=== PATIENT | female | born 1960 | race American Indian/Alaskan Native ===

== ENCOUNTER 2021-04-13 06:02 | Observation (INO) | payer BC ==
[2021-04-13 06:40] LABS: Bilirubin,Urine NEG (Negative); Blood,Urine NEG (Negative); Color,Urine Yellow (Yellow); Urobilinogen,Urine < 2.0 mg/dL (<2.0); WBC,Urine < 1.0 /HPF (0.0-6.0)
[2021-04-13 07:16] LABS: Basophils # (Auto) 0.1 K/mm3 (0.0-0.1); Basophils % (Auto) 0.6 % (0.0-1.8); Eosinophils % (Auto) 0.3 % (0.0-4.3); Hematocrit 36.4 % (30.3-42.9); Hemoglobin 12.4 gm/dl (10.1-14.3); Lymphocytes # (Auto) 0.8 K/mm3 (1.2-5.4); Lymphocytes % (Auto) 7.6 % (13.4-35.0); Mean Corpuscular HGB Conc 34 % (30-34); Mean Corpuscular Volume 89 fl (79-97); Monocytes # (Auto) 0.3 K/mm3 (0.0-0.8); Monocytes % (Auto) 3.1 % (0.0-7.3); Platelet Count 352 K/mm3 (140-440); Red Blood Count 4.09 M/mm3 (3.65-5.03); Red Cell Distribution Width 14.5 % (13.2-15.2)
[2021-04-13 07:26] LABS: INR 0.94 (0.87-1.13); Partial Thromboplastin Time 25.9 Sec. (24.2-36.6)
[2021-04-13] MEDS ORDERED: MORPHINE 4 MG/1 ML INJ IV ONE ×3 (07:31→15:33)
[2021-04-13] MEDS ORDERED: PANTOPRAZOLE 40 MG INJ IV ONE (07:31)
[2021-04-13] MEDS ORDERED: ONDANSETRON 4 MG/2 ML INJ IV ONE ×2 (07:31→11:04)
--- NOTE | 2021-04-13 07:35 | Emergency Department Report ---
HPI - General Chief Complaint: Abdominal Pain Time Seen by Provider: 04/13/21 07:27 - HPI HPI: This is a 61-year-old -[place] female presents to the emergency department from home with complaint of middle to upper abdominal pain, nausea without vomiting, and 3 episodes of dark black stool, since about 9 PM last night. She has not taken anything for symptoms prior to presentation. Currently her abdominal pain is 8 out of 10 in intensity. No known aggravating or alleviating factors. She has a past medical history of hypertension and high cholesterol. She is a tobacco smoker and is currently taking bupropion to assist with smoking cessation. No recent travel or sick contacts at home. She has a primary care physician, Dr. Gordillo, for outpatient follow-up. ED Past Medical Hx - Past Medical History Previous Medical History?: Yes Hx Hypertension: Yes Additional medical history: high cholesterol - Surgical History Additional Surgical History: - Social History Smoking Status: Current Every Day Smoker Substance Use Type: None - Medications Home Medications: Home Medications Medication Instructions Recorded Confirmed Last Taken Type Atorvastatin 40 mg PO DAILY 04/13/21 04/13/21 Unknown History Bupropion HCl 150 mg PO BID 04/13/21 04/13/21 Unknown History Flexeril 5 MG TAB 5 mg PO BID PRN 04/13/21 04/13/21 Unknown History Losartan 100 mg PO DAILY 04/13/21 04/13/21 Unknown History Nifedipine 60 mg PO DAILY 04/13/21 04/13/21 Unknown History Trazodone HCl 75 mg PO HS 04/13/21 04/13/21 Unknown History ED Review of Systems ROS: Stated complaint: STOMACH PAINS/DARK BOWEL MOVEMENT Other details as noted in HPI Comment: All other systems reviewed and negative Constitutional: denies: chills, fever Eyes: denies: eye pain, vision change ENT: denies: ear pain, throat pain Respiratory: denies: cough, shortness of breath Cardiovascular: denies: chest pain, palpitations Gastrointestinal: abdominal pain, nausea, melena. denies: vomiting Genitourinary: denies: dysuria, discharge Musculoskeletal: denies: back pain, arthralgia Skin: denies: rash, lesions Neurological: denies: headache, weakness Physical Exam - Physical Exam Vital Signs: Vital Signs 04/13/21 06:13 Temperature 98.2 F Pulse Rate 101 H Respiratory 18 Rate Blood Pressure 156/88 O2 Sat by Pulse 99 Oximetry Physical Exam: GENERAL: The patient is well-developed well-nourished. HENT: Normocephalic. Atraumatic. Patient has moist mucous membranes. EYES: Extraocular motions are intact. NECK: Supple. Trachea is midline. CHEST/LUNGS: Clear to auscultation. There is no respiratory distress noted. HEART/CARDIOVASCULAR: Regular. There is no tachycardia. There is no murmur. ABDOMEN: Abdomen is soft. There is upper abdominal tenderness to palpation. No guarding. Patient has normal bowel sounds. There is no abdominal distention. SKIN: Skin is warm and dry. NEURO: The patient is awake, alert, and oriented. The patient is cooperative. The patient has no focal neurologic deficits. Normal speech. MUSCULOSKELETAL: There is no tenderness or deformity. There is no limitation range of motion. RECTAL: There was a small amount of dark brown stool obtained that was negative on guaiac testing. ED Course Vital Signs 04/13/21 06:13 Temperature 98.2 F Pulse Rate 101 H Respiratory 18 Rate Blood Pressure 156/88 O2 Sat by Pulse 99 Oximetry ED Medical Decision Making - Lab Data Result diagrams: 04/13/21 06:58 04/13/21 06:58 Lab Results 04/13/21 04/13/21 04/13/21 Range/Units 06:58 06:58 06:58 WBC 10.3 (4.5-11.0) K/mm3 RBC 4.09 (3.65-5.03) M/mm3 Hgb 12.4 (10.1-14.3) gm/dl Hct 36.4 (30.3-42.9) % MCV 89 (79-97) fl MCH 30 (28-32) pg MCHC 34 (30-34) % RDW 14.5 (13.2-15.2) % Plt Count 352 (140-440) K/mm3 Lymph % (Auto) 7.6 L (13.4-35.0) % [place] % (Auto) 3.1 (0.0-7.3) % Eos % (Auto) 0.3 (0.0-4.3) % Baso % (Auto) 0.6 (0.0-1.8) % Lymph # (Auto) 0.8 L (1.2-5.4) K/mm3 [place] # (Auto) 0.3 (0.0-0.8) K/mm3 Eos # (Auto) 0.0 (0.0-0.4) K/mm3 Baso # (Auto) 0.1 (0.0-0.1) K/mm3 Seg Neutrophils % 88.4 H (40.0-70.0) % Seg Neutrophils # 9.1 H (1.8-7.7) K/mm3 PT 13.1 (12.2-14.9) Sec. INR 0.94 (0.87-1.13) APTT 25.9 (24.2-36.6) Sec. Sodium 137 (137-145) mmol/L Potassium 3.8 (3.6-5.0) mmol/L Chloride 98.9 (98-107) mmol/L Carbon Dioxide 24 (22-30) mmol/L Anion Gap 18 mmol/L BUN 13 (7-17) mg/dL Creatinine 0.7 (0.6-1.2) mg/dL Estimated GFR > 60 ml/min BUN/Creatinine Ratio 19 % Glucose 121 H (65-100) mg/dL Calcium 9.9 (8.4-10.2) mg/dL Total Bilirubin 0.50 (0.1-1.2) mg/dL AST 49 H (5-40) units/L ALT 41 (7-56) units/L Alkaline Phosphatase 112 (35-129) units/L Total Protein 7.3 (6.3-8.2) g/dL Albumin 4.8 (3.9-5) g/dL Albumin/Globulin Ratio 1.9 % Lipase (13-60) units/L Urine Color (Yellow) Urine Turbidity (Clear) Urine pH (5.0-7.0) Ur Specific [place] (1.003-1.030) Urine Protein (Negative) mg/dL Urine Glucose (UA) (Negative) mg/dL Urine Ketones (Negative) mg/dL Urine Blood (Negative) Urine Nitrite (Negative) Urine Bilirubin (Negative) Urine Urobilinogen (<2.0) mg/dL Ur Leukocyte Esterase (Negative) Urine WBC (Auto) (0.0-6.0) /HPF Urine RBC (Auto) (0.0-6.0) /HPF U Epithel Cells (Auto) (0-13.0) /HPF 04/13/21 04/13/21 Range/Units 06:58 Unknown WBC (4.5-11.0) K/mm3 RBC (3.65-5.03) M/mm3 Hgb (10.1-14.3) gm/dl Hct (30.3-42.9) % MCV (79-97) fl MCH (28-32) pg MCHC (30-34) % RDW (13.2-15.2) % Plt Count (140-440) K/mm3 Lymph % (Auto) (13.4-35.0) % [place] % (Auto) (0.0-7.3) % Eos % (Auto) (0.0-4.3) % Baso % (Auto) (0.0-1.8) % Lymph # (Auto) (1.2-5.4) K/mm3 [place] # (Auto) (0.0-0.8) K/mm3 Eos # (Auto) (0.0-0.4) K/mm3 Baso # (Auto) (0.0-0.1) K/mm3 Seg Neutrophils % (40.0-70.0) % Seg Neutrophils # (1.8-7.7) K/mm3 PT (12.2-14.9) Sec. INR (0.87-1.13) APTT (24.2-36.6) Sec. Sodium (137-145) mmol/L Potassium (3.6-5.0) mmol/L Chloride (98-107) mmol/L Carbon Dioxide (22-30) mmol/L Anion Gap mmol/L BUN (7-17) mg/dL Creatinine (0.6-1.2) mg/dL Estimated GFR ml/min BUN/Creatinine Ratio % Glucose (65-100) mg/dL Calcium (8.4-10.2) mg/dL Total Bilirubin (0.1-1.2) mg/dL AST (5-40) units/L ALT (7-56) units/L Alkaline Phosphatase (35-129) units/L Total Protein (6.3-8.2) g/dL Albumin (3.9-5) g/dL Albumin/Globulin Ratio % Lipase 28 (13-60) units/L Urine Color Yellow (Yellow) Urine Turbidity Clear (Clear) Urine pH 7.0 (5.0-7.0) Ur Specific [place] 1.010 (1.003-1.030) Urine Protein 30 mg/dl (Negative) mg/dL Urine Glucose (UA) 50 (Negative) mg/dL Urine Ketones Tr (Negative) mg/dL Urine Blood Neg (Negative) Urine Nitrite Neg (Negative) Urine Bilirubin Neg (Negative) Urine Urobilinogen < 2.0 (<2.0) mg/dL Ur Leukocyte Esterase Neg (Negative) Urine WBC (Auto) < 1.0 (0.0-6.0) /HPF Urine RBC (Auto) 1.0 (0.0-6.0) /HPF U Epithel Cells (Auto) < 1.0 (0-13.0) /HPF - Radiology Data Radiology results: report reviewed Chest and abdominal series HISTORY: Abdominal pain. Chest one view: Heart size is normal. The lungs are clear. Two-view abdomen: No free air. Mildly distended small bowel loops with air-fluid levels. Developing obstruction versus gastroenteritis-type process. CT ABDOMEN AND PELVIS WITH CONTRAST INDICATION / CLINICAL INFORMATION: Right upper quadrant pain. TECHNIQUE: Axial CT images were obtained through the abdomen and pelvis after Omnipaque 300, 100 cc [address] All [address] scans at this location are performed using CT dose reduction for ALARA by means of automated exposure control. COMPARISON: None available. FINDINGS: LOWER CHEST: No significant abnormality. LIVER: No significant abnormality. GALLBLADDER: Calcified gallstones. BILE DUCTS: No significant abnormality. PANCREAS: No significant abnormality. SPLEEN: No significant abnormality. ADRENALS: No significant abnormality. RIGHT KIDNEY / URETER: No significant abnormality. LEFT KIDNEY / URETER: No significant abnormality. STOMACH / SMALL BOWEL: No signific ant abnormality. COLON: Moderate thickening at the a sending colon with adjacent inflammation. No free perforation or abscess. APPENDIX: No significant abnormality. PERITONEUM: No free fluid. No free air. No fluid collection. LYMPH NODES: No significant adenopathy. VASCULAR STRUCTURES: Mild atherosclerotic vascular calcification. URINARY BLADDER: Mild distention. REPRODUCTIVE ORGANS: No significant abnormality. ADDITIONAL FINDINGS: None. SKELETAL SYSTEM: No significant abnormality. IMPRESSION: 1. Suspect localized colitis at the ascending colon. Follow-up is recommended to ensure clearing and exclude an underlying lesion. 2. Calcified gallstones. - Medical Decision Making This patient presents to the emergency department with a complaint of middle to upper abdominal pain, melanotic stool and some nausea without vomiting. There is reproducible abdominal tenderness to palpation. The abdomen is soft and nondistended. Patient's labs have been mostly unremarkable including CBC, metabolic panel and urinalysis. Abdominal x-ray showed some concern for possible early obstruction with some mildly distended bowel. For this reason a CT scan of the abdomen and pelvis with IV contrast was done that shows some colitis in the ascending colon. It al so shows calcified gallstones without evidence of cholecystitis. The patient received 2 different doses of IV analgesia, 2 doses of antiemetics, IV fluid resuscitation, and she continues to complain of at least moderate abdominal pain. She also continues to have some mild tachycardia. For these r easons the patient will be admitted to the hospital for further evaluation and treatment was accepted for patient by the hospitalist, Dr. Mcguire. Critical Care Time: No Critical care attestation.: If time is entered above; I have spent that time in minutes in the direct care of this critically ill patient, excluding procedure time. ED Disposition Clinical Impression: Colitis, Intractable abdominal pain, Complaint of melena Cholelithiasis Qualifiers: Cholelithiasis location: gallbladder Cholecystitis presence: without cholecys titis Biliary obstruction: without biliary obstruction Qualified Code(s): K80.20 - Calculus of gallbladder without cholecystitis without obstruction Hypertension Qualifiers: Hypertension type: primary hypertension Qualified Code(s): I10 - Essential (primary) hypertension Disposition: OP ADMIT IP TO THIS HOSP Is pt being admited?: Yes Condition: Fair Instructions: Abdominal Pain (ED), Hypertension (ED) Time of Disposition: 13:48
[2021-04-13 08:03] LABS: Alanine Aminotransferase 41 units/L (7-56); Albumin 4.8 g/dL (3.9-5); Blood Urea Nitrogen 13 mg/dL (7-17); Calcium 9.9 mg/dL (8.4-10.2); Hemolysis Index 2
[2021-04-13 08:08] LABS: BUN/Creatinine Ratio 19
[2021-04-13] MEDS ORDERED: WATER FOR INJ Sterile (PF) 10 ML ONE (08:09)
--- NOTE | 2021-04-13 08:47 | XRay Report ---
Chest and abdominal series HISTORY: Abdominal pain. Chest one view: Heart size is normal. The lungs are clear. Two-view abdomen: No free air. Mildly distended small bowel loops with air-fluid levels. Developing o bstruction versus gastroenteritis-type process. Signer Name: Kamran Anderson MD Signed: 04/13/2021 8:43 AM Workstation Name: [id number]
--- NOTE | 2021-04-13 10:58 | Cat Scan Report ---
CT ABDOMEN AND PELVIS WITH CONTRAST INDICATION / CLINICAL INFORMATION: Right upper quadrant pain. TECHNIQUE: Axial CT images were obtained through the abdomen and pelvis after Omnipaque 300, 100 cc I V contrast. All CT scans at this location are performed using CT dose reduction for ALARA by means o f automated exposure control. COMPARISON: None available. FINDINGS: LOWER CHEST: No significant abnormality. LIVER: No significant abnormality. GALLBLADDER: Calcified gallstones. BILE DUCTS: No significant abnormality. PANCREAS: No significant abnormality. SPLEEN: No significant abnormality. ADRENALS: No significant abnormality. RIGHT KIDNEY / URETER: No significant abnormality. LEFT KIDNEY / URETER: No significant abnormality. STOMACH / SMALL BOWEL: No significant abnormality. COLON: Moderate thickening at the a sending colon with adjacent inflammation. No free perforation or abscess. APPENDIX: No significant abnormality. PERITONEUM: No free fluid. No free air. No fluid collection. LYMPH NODES: No significant adenopathy. VASCULAR STRUCTURES: Mild atherosclerotic vascular calcification. URINARY BLADDER: Mild distention. REPRODUCTIVE ORGANS: No significant abnormality. ADDITIONAL FINDINGS: None. SKELETAL SYSTEM: No significant abnormality. IMPRESSION: 1. Suspect localized colitis at the ascending colon. Follow-up is recommended to ensure clearing and exclude an underlying lesion. 2. Calcified gallstones. Signer Name: Kamran Anderson MD Signed: 04/13/2021 10:54 AM Workstation Name: [id number]
[2021-04-13] MEDS ORDERED: PIPERACIL/TAZOBACTA 4.5/NS 100 4.5 GM/100 ML VIAL IV ONE (11:41)
--- NOTE | 2021-04-13 15:57 | History and Physical Report ---
History of Present Illness Date of examination: 04/13/21 Date of admission: 04/13/21 15:16 Chief complaint: Abdominal pain since a.m. History of present illness: 61-year-old female with history of hypertension hyperlipidemia and generalized anxiety disorder comes in for diffuse abdominal pain associated with nausea but no vomiting. Also 3 episodes of black stools since last night at 9 PM. Abdominal pain is about 8 on a scale of 1/10 1-10 scale. Intermittent in nature. Currently a smoker. No recent travel no fever or chills. No exposure to coronavirus. Her main problem is diffuse abdominal pain. - Past Medical History Previous Medical History?: Yes --Hypertension: Yes --Additional medical history: high cholesterol - Surgical History Additional Surgical History: - Social History Smoking Status: Current Every Day Smoker Substance Use Type: None - Medications Home Medications: Home Medications Medication Instructions Recorded Confirmed Last Taken Type Atorvastatin 40 mg PO DAILY 04/13/21 04/13/21 Unknown History Bupropion HCl 150 mg PO BID 04/13/21 04/13/21 Unknown History Flexeril 5 MG TAB 5 mg PO BID PRN 04/13/21 04/13/21 Unknown History Losartan 100 mg PO DAILY 04/13/21 04/13/21 Unknown History Nifedipine 60 mg PO DAILY 04/13/21 04/13/21 Unknown History Trazodone HCl 75 mg PO HS 04/13/21 04/13/21 Unknown History Review of Systems ROS: Stated complaint: STOMACH PAINS/DARK BOWEL MOVEMENT Other details as noted in HPI Comment: All other systems reviewed and negative Constitutional: denies: chills, fever Eyes: denies: eye pain, vision change ENT: denies: ear pain, throat pain Respiratory: denies: cough, shortness of breath Cardiovascular: denies: chest pain, palpitations Gastrointestinal: abdominal pain, nausea, melena. denies: vomiting Genitourinary: denies: dysuria, discharge Musculoskeletal: denies: back pain, arthralgia Skin: denies: rash, lesions Neurological: denies: headache, weakness Medications and Allergies Allergies Allergy/AdvReac Type Severity Reaction Status Date / Time No Known Allergies Allergy Verified 04/13/21 08:11 Home Medications Medication Instructions Recorded Confirmed Last Taken Type Atorvastatin 40 mg PO DAILY 04/13/21 04/13/21 Unknown History Bupropion HCl 150 mg PO BID 04/13/21 04/13/21 Unknown History Flexeril 5 MG TAB 5 mg PO BID PRN 04/13/21 04/13/21 Unknown History Losartan 100 mg PO DAILY 04/13/21 04/13/21 Unknown History Nifedipine 60 mg PO DAILY 04/13/21 04/13/21 Unknown History Trazodone HCl 75 mg PO HS 04/13/21 04/13/21 Unknown History Exam - Constitutional Vitals: Temp Pulse Resp BP Pulse Ox 99.0 F 99 H 21 155/91 99 04/13/21 15:30 04/13/21 15:30 04/13/21 10:15 04/13/21 15:30 04/13/21 15:30 General appearance: Present: no acute distress, well-nourished - EENT Eyes: Present: PERRL ENT: hearing intact, clear oral mucosa - Neck Neck: Present: supple, normal ROM - Respiratory Respiratory effort: normal Respiratory: bilateral: CTA - Cardiovascular Heart rate: 78 Rhythm: regular Heart Sounds: Present: S1 & S2. Absent: rub, click - Extremities Extremities: pulses symmetrical, No edema Peripheral Pulses: within normal limits - Abdominal General gastrointestinal: Present: soft, tender, non-distended, normal bowel sounds Localized gastrointestinal: tender: diffuse Female genitourinary: Present: normal - Integumentary Integumentary: Present: clear, warm, dry - Musculoskeletal Musculoskeletal: gait normal, strength equal bilaterally - Psychiatric Psychiatric: appropriate mood/affect, intact judgment & insight - Neurologic Neurologic: CNII-XII intact, moves all extremities - Allied Health Allied health notes reviewed: nursing, case management Results - Labs CBC & Chem 7: 04/14/21 04:14 04/14/21 04:14 Labs: Laboratory Last Values WBC 10.3 K/mm3 (4.5-11.0) 04/13/21 06:58 RBC 4.09 M/mm3 (3.65-5.03) 04/13/21 06:58 Hgb 12.4 gm/dl (10.1-14.3) 04/13/21 06:58 Hct 36.4 % (30.3-42.9) 04/13/21 06:58 MCV 89 fl (79-97) 04/13/21 06:58 MCH 30 pg (28-32) 04/13/21 06:58 MCHC 34 % (30-34) 04/13/21 06:58 RDW 14.5 % (13.2-15.2) 04/13/21 06:58 Plt Count 352 K/mm3 (140-440) 04/13/21 06:58 Lymph % (Auto) 7.6 % (13.4-35.0) L 04/13/21 06:58 Daniels % (Auto) 3.1 % (0.0-7.3) 04/13/21 06:58 Eos % (Auto) 0.3 % (0.0-4.3) 04/13/21 06:58 Baso % (Auto) 0.6 % (0.0-1.8) 04/13/21 06:58 Lymph # (Auto) 0.8 K/mm3 (1.2-5.4) L 04/13/21 06:58 Daniels # (Auto) 0.3 K/mm3 (0.0-0.8) 04/13/21 06:58 Eos # (Auto) 0.0 K/mm3 (0.0-0.4) 04/13/21 06:58 Baso # (Auto) 0.1 K/mm3 (0.0-0.1) 04/13/21 06:58 Seg Neutrophils % 88.4 % (40.0-70.0) H 04/13/21 06:58 Seg Neutrophils # 9.1 K/mm3 (1.8-7.7) H 04/13/21 06:58 PT 13.1 Sec. (12.2-14.9) 04/13/21 06:58 INR 0.94 (0.87-1.13) 04/13/21 06:58 APTT 25.9 Sec. (24.2-36.6) 04/13/21 06:58 Sodium 137 mmol/L (137-145) 04/13/21 06:58 Potassium 3.8 mmol/L (3.6-5.0) 04/13/21 06:58 Chloride 98.9 mmol/L (98-107) 04/13/21 06:58 Carbon Dioxide 24 mmol/L (22-30) 04/13/21 06:58 Anion Gap 18 mmol/L 04/13/21 06:58 BUN 13 mg/dL (7-17) 04/13/21 06:58 Creatinine 0.7 mg/dL (0.6-1.2) 04/13/21 06:58 Estimated GFR > 60 ml/min 04/13/21 06:58 BUN/Creatinine Ratio 19 % 04/13/21 06:58 Glucose 121 mg/dL (65-100) H 04/13/21 06:58 Calcium 9.9 mg/dL (8.4-10.2) 04/13/21 06:58 Total Bilirubin 0.50 mg/dL (0.1-1.2) 04/13/21 06:58 AST 49 units/L (5-40) H 04/13/21 06:58 ALT 41 units/L (7-56) 04/13/21 06:58 Alkaline Phosphatase 112 units/L (35-129) 04/13/21 06:58 Total Protein 7.3 g/dL (6.3-8.2) 04/13/21 06:58 Albumin 4.8 g/dL (3.9-5) 04/13/21 06:58 Albumin/Globulin Ratio 1.9 % 04/13/21 06:58 Lipase 28 units/L (13-60) 04/13/21 06:58 Urine Color Yellow (Yellow) 04/13/21 Unknown Urine Turbidity Clear (Clear) 04/13/21 Unknown Urine pH 7.0 (5.0-7.0) 04/13/21 Unknown Ur Specific [place] 1.010 (1.003-1.030) 04/13/21 Unknown Urine Protein 30 mg/dl mg/dL (Negative) 04/13/21 Unknown Urine Glucose (UA) 50 mg/dL (Negative) 04/13/21 Unknown Urine Ketones Tr mg/dL (Negative) 04/13/21 Unknown Urine Blood Neg (Negative) 04/13/21 Unknown Urine Nitrite Neg (Negative) 04/13/21 Unknown Urine Bilirubin Neg (Negative) 04/13/21 Unknown Urine Urobilinogen < 2.0 mg/dL (<2.0) 04/13/21 Unknown Ur Leukocyte Esterase Neg (Negative) 04/13/21 Unknown Urine WBC (Auto) < 1.0 /HPF (0.0-6.0) 04/13/21 Unknown Urine RBC (Auto) 1.0 /HPF (0.0-6.0) 04/13/21 Unknown U Epithel Cells (Auto) < 1.0 /HPF (0-13.0) 04/13/21 Unknown Short CBC 04/13/21 Range/Units 06:58 WBC 10.3 (4.5-11.0) K/mm3 Hgb 12.4 (10.1-14.3) gm/dl Hct 36.4 (30.3-42.9) % Plt Count 352 (140-440) K/mm3 BMP 04/13/21 06:58 Sodium 137 Potassium 3.8 Chloride 98.9 Carbon Dioxide 24 BUN 13 Creatinine 0.7 Glucose 121 H Calcium 9.9 Liver Function 04/13/21 Range/Units 06:58 Total Bilirubin 0.50 (0.1-1.2) mg/dL AST 49 H (5-40) units/L ALT 41 (7-56) units/L Alkaline Phosphatase 112 (35-129) units/L Albumin 4.8 (3.9-5) g/dL Urine 04/13/21 Range/Units Unknown Urine Color Yellow (Yellow) Urine pH 7.0 (5.0-7.0) Ur Specific [place] 1.010 (1.003-1.030) Urine Protein 30 mg/dl (Negative) mg/dL Urine Glucose (UA) 50 (Negative) mg/dL Short CBC 04/13/21 04/14/21 Range/Units 06:58 04:14 WBC 10.3 9.0 (4.5-11.0) K/mm3 Hgb 12.4 11.2 (10.1-14.3) gm/dl Hct 36.4 33.3 (30.3-42.9) % Plt Count 352 282 (140-440) K/mm3 BMP 04/13/21 04/14/21 06:58 04:14 Sodium 137 139 Potassium 3.8 3.4 L Chloride 98.9 103.4 Carbon Dioxide 24 25 BUN 13 7 Creatinine 0.7 0.6 Glucose 121 H 93 Calcium 9.9 9.1 Liver Function 04/13/21 04/14/21 Range/Units 06:58 04:14 Total Bilirubin 0.50 0.90 (0.1-1.2) mg/dL AST 49 H 23 (5-40) units/L ALT 41 24 (7-56) units/L Alkaline Phosphatase 112 97 (35-129) units/L Albumin 4.8 4.0 (3.9-5) g/dL - Imaging and Cardiology CT scan - abdomen: report reviewed Imaging and Cardiology: CT ABDOMEN AND PELVIS WITH CONTRAST INDICATION / CLINICAL INFORMATION: Right upper quadrant pain FINDINGS: COLON: Moderate thickening at the Ascending colon with adjacent inflammation. No free perforation or abscess LOWER CHEST: No significant abnormality. LIVER: No significant abnormality. GALLBLADDER: Calcified gallstones. BILE DUCTS: No significant abnormality. PANCREAS: No significant abnormality. SPLEEN: No significant abnormality. ADRENALS: No significant abnormality. RIGHT KIDNEY / URETER: No significant abnormality. LEFT KIDNEY / URETER: No significant abnormality. STOMACH / SMALL BOWEL: No significant abnormality. . APPENDIX: No significant abnormality. PERITONEUM: No free fluid. No free air. No fluid collection. LYMPH NODES: No significant adenopathy. VASCULAR STRUCTURES: Mild atherosclerotic vascular calcification. URINARY BLADDER: Mild distention. REPRODUCTIVE ORGANS: No significant abnormality. ADDITIONAL FINDINGS: None. SKELETAL SYSTEM: No significant abnormality. IMPRESSION: 1. Suspect localized colitis at the ascending colon. Follow-up is recommended to ensure clearing and exclude an underlying lesion. 2. Calcified gallstones. Assessment and Plan Advance Directives: Yes - Patient Problems (1) Colitis Current Visit: Yes Status: Acute Plan to address problem: Patient initiated on IV Zosyn and IV Flagyl GI consult requested Clear liquids for now (2) Hypertension Current Visit: Yes Status: Chronic Qualifiers: Hypertension type: primary hypertension Qualified Code(s): I10 - Essential (primary) hypertension Plan to address problem: Continue antihypertensives (3) Hyperlipidemia Current Visit: Yes Status: Chronic Qualifiers: Hyperlipidemia type: mixed hyperlipidemia Qualified Code(s): E78.2 - Mixed hyperlipidemia Plan to address problem: Continue statins. (4) Depression Current Visit: Yes Status: Chronic Plan to address problem: Continue Wellbutrin (5) DVT prophylaxis Current Visit: Yes Status: Acute Plan to address problem: On heparin and GI prophylaxis
[2021-04-13] MEDS ORDERED: FLEXERIL 5 MG PO PRN (16:09)
[2021-04-13] MEDS ORDERED: NON-FORMULARY EACH (Nifedipine 60 MG) PO SCH (16:15)
[2021-04-13] MEDS ORDERED: NON-FORMULARY EACH (Losartan 100 MG) PO SCH (16:15)
[2021-04-13] MEDS ORDERED: ACETAMINOPHEN 325 MG TAB PO PRN (16:19)
[2021-04-13] MEDS ORDERED: MORPHINE 2 MG/1 ML INJ IV PRN (16:19)
[2021-04-13] MEDS ORDERED: METOCLOPRAMIDE 10 MG/2 ML INJ IV PRN (16:19)
[2021-04-13] MEDS: NIFEdipine XL 60 MG TAB PO SCH (16:44)
[2021-04-13] MEDS: LOSARTAN 50 MG TAB PO SCH (16:46)
[2021-04-13] MEDS: SODIUM CHLORIDE 0.9% 1000 ML 1,000 ML IV SCH (16:47)
[2021-04-13] MEDS ORDERED: CYCLOBENZAPRINE 10 MG TAB PO PRN (22:00)
[2021-04-13] MEDS ORDERED: TRAZODONE HCL 75 MG PO SCH (22:00)
[2021-04-13] MEDS: FAMOTIDINE 20 MG/2 ML INJ IV SCH (22:44)
[2021-04-13] MEDS: traZODone 50 MG TAB PO SCH (22:44)
[2021-04-13] MEDS: buPROPion SR 150 MG TAB PO SCH (22:45)
[2021-04-13] MEDS: PIPERACIL/TAZOBACTA 4.5/NS 100 4.5 GM/100 ML VIAL IV SCH (22:45)
[2021-04-14] MEDS: PIPERACIL/TAZOBACTA 4.5/NS 100 4.5 GM/100 ML VIAL IV SCH ×3 (03:41→20:13)
[2021-04-14 05:15] LABS: Basophils % (Auto) 0.3 % (0.0-1.8); Eosinophils # (Auto) 0.1 K/mm3 (0.0-0.4); Eosinophils % (Auto) 1.2 % (0.0-4.3); Hematocrit 33.3 % (30.3-42.9); Hemoglobin 11.2 gm/dl (10.1-14.3); Lymphocytes # (Auto) 1.1 K/mm3 (1.2-5.4); Lymphocytes % (Auto) 12.3 % (13.4-35.0); Mean Corpuscular HGB Conc 34 % (30-34); Mean Corpuscular Volume 90 fl (79-97); Monocytes # (Auto) 0.5 K/mm3 (0.0-0.8); Monocytes % (Auto) 5.5 % (0.0-7.3); Platelet Count 282 K/mm3 (140-440); Red Blood Count 3.69 M/mm3 (3.65-5.03); Red Cell Distribution Width 14.3 % (13.2-15.2)
[2021-04-14 05:33] LABS: Alanine Aminotransferase 24 units/L (7-56); Blood Urea Nitrogen 7 mg/dL (7-17); Calcium 9.1 mg/dL (8.4-10.2); Hemolysis Index 2
[2021-04-14 05:44] LABS: BUN/Creatinine Ratio 12
[2021-04-14] MEDS ORDERED: POTASSIUM CHLORIDE ER 20 MEQ TAB PO NR (08:38)
--- NOTE | 2021-04-14 08:39 | Progress Note ---
Assessment and Plan Assessment and plan: --Hypokalemia; Current Visit: Yes Status: Acute Replenished with KCl --Localized colitis ascending colon Current Visit: Yes Status: Acute Continue IV Zosyn and IV Flagyl IV fluids , clear liquids as tolerated Follow GI evaluation and recommendations Pain management --Hypertension Current Visit: Yes Status: Chronic Moderate control, continue current antihypertensives closely monitor blood pressures, as needed medications --Hyperlipidemia Current Visit: Yes Status: Chronic Continue statins. Low-cholesterol diet --Depression Current Visit: Yes Status: Chronic Continue Wellbutrin, psych evaluation if needed --DVT prophylaxis Current Visit: Yes Status: Acute On heparin and GI prophylaxis follow GI evaluation recommendations We will closely monitor the patient and adjust the management as needed Possible discharge in 1 to 2 days if stable pending GI evaluation History Interval history: I have seen and examined the patient at the bedside Patient's chart and medications reviewed No new events reported by the nursing staff Patient is tolerating clear liquids Mild abdominal pain, No nausea vomiting no diarrhea Vital signs noted Hospitalist Physical - Constitutional Vitals: Temp Pulse Resp BP Pulse Ox 98.7 F 96 H 18 126/70 98 04/14/21 07:27 04/14/21 07:27 04/14/21 07:27 04/14/21 07:27 04/14/21 07:27 General appearance: Present: no acute distress, well-nourished - EENT Eyes: Present: PERRL, EOM intact - Neck Neck: Present: supple, normal ROM - Respiratory Respiratory effort: normal Respiratory: bilateral: diminished, negative: rales, rhonchi, wheezing - Cardiovascular Rhythm: regular Heart Sounds: Present: S1 & S2 - Extremities Extremities: no ischemia, No edema - Abdominal General gastrointestinal: soft, tender, non-distended - Integumentary Integumentary: Present: clear, warm - Psychiatric Psychiatric: appropriate mood/affect, cooperative - Neurologic Neurologic: CNII-XII intact, moves all extremities Results - Labs CBC & Chem 7: 04/14/21 04:14 04/14/21 04:14 Labs: Laboratory Last Values WBC 9.0 K/mm3 (4.5-11.0) 04/14/21 04:14 RBC 3.69 M/mm3 (3.65-5.03) 04/14/21 04:14 Hgb 11.2 gm/dl (10.1-14.3) 04/14/21 04:14 Hct 33.3 % (30.3-42.9) 04/14/21 04:14 MCV 90 fl (79-97) 04/14/21 04:14 MCH 30 pg (28-32) 04/14/21 04:14 MCHC 34 % (30-34) 04/14/21 04:14 RDW 14.3 % (13.2-15.2) 04/14/21 04:14 Plt Count 282 K/mm3 (140-440) 04/14/21 04:14 Lymph % (Auto) 12.3 % (13.4-35.0) L 04/14/21 04:14 [place]ger % (Auto) 5.5 % (0.0-7.3) 04/14/21 04:14 Eos % (Auto) 1.2 % (0.0-4.3) 04/14/21 04:14 Baso % (Auto) 0.3 % (0.0-1.8) 04/14/21 04:14 Lymph # (Auto) 1.1 K/mm3 (1.2-5.4) L 04/14/21 04:14 [place] # (Auto) 0.5 K/mm3 (0.0-0.8) 04/14/21 04:14 Eos # (Auto) 0.1 K/mm3 (0.0-0.4) 04/14/21 04:14 Baso # (Auto) 0.0 K/mm3 (0.0-0.1) 04/14/21 04:14 Seg Neutrophils % 80.7 % (40.0-70.0) H 04/14/21 04:14 Seg Neutrophils # 7.2 K/mm3 (1.8-7.7) 04/14/21 04:14 PT 13.1 Sec. (12.2-14.9) 04/13/21 06:58 INR 0.94 (0.87-1.13) 04/13/21 06:58 APTT 25.9 Sec. (24.2-36.6) 04/13/21 06:58 Sodium 139 mmol/L (137-145) 04/14/21 04:14 Potassium 3.4 mmol/L (3.6-5.0) L 04/14/21 04:14 Chloride 103.4 mmol/L (98-107) 04/14/21 04:14 Carbon Dioxide 25 mmol/L (22-30) 04/14/21 04:14 Anion Gap 14 mmol/L 04/14/21 04:14 BUN 7 mg/dL (7-17) 04/14/21 04:14 Creatinine 0.6 mg/dL (0.6-1.2) 04/14/21 04:14 Estimated GFR > 60 ml/min 04/14/21 04:14 BUN/Creatinine Ratio 12 % 04/14/21 04:14 Glucose 93 mg/dL (65-100) 04/14/21 04:14 Hemoglobin A1c 4.4 % (4-6) 04/14/21 04:14 Calcium 9.1 mg/dL (8.4-10.2) 04/14/21 04:14 Total Bilirubin 0.90 mg/dL (0.1-1.2) 04/14/21 04:14 AST 23 units/L (5-40) 04/14/21 04:14 ALT 24 units/L (7-56) 04/14/21 04:14 Alkaline Phosphatase 97 units/L (35-129) 04/14/21 04:14 Total Protein 6.4 g/dL (6.3-8.2) 04/14/21 04:14 Albumin 4.0 g/dL (3.9-5) 04/14/21 04:14 Albumin/Globulin Ratio 1.7 % 04/14/21 04:14 Lipase 28 units/L (13-60) 04/13/21 06:58 Urine Color Yellow (Yellow) 04/13/21 Unknown Urine Turbidity Clear (Clear) 04/13/21 Unknown Urine pH 7.0 (5.0-7.0) 04/13/21 Unknown Ur Specific Downey 1.010 (1.003-1.030) 04/13/21 Unknown Urine Protein 30 mg/dl mg/dL (Negative) 04/13/21 Unknown Urine Glucose (UA) 50 mg/dL (Negative) 04/13/21 Unknown Urine Ketones Tr mg/dL (Negative) 04/13/21 Unknown Urine Blood Neg (Negative) 04/13/21 Unknown Urine Nitrite Neg (Negative) 04/13/21 Unknown Urine Bilirubin Neg (Negative) 04/13/21 Unknown Urine Urobilinogen < 2.0 mg/dL (<2.0) 04/13/21 Unknown Ur Leukocyte Esterase Neg (Negative) 04/13/21 Unknown Urine WBC (Auto) < 1.0 /HPF (0.0-6.0) 04/13/21 Unknown Urine RBC (Auto) 1.0 /HPF (0.0-6.0) 04/13/21 Unknown U Epithel Cells (Auto) < 1.0 /HPF (0-13.0) 04/13/21 Unknown Dawkins/IV: Voiding Method Toilet Active Medications - Current Medications Current Medications: Generic Name Dose Route Start Last Admin Trade Name Freq PRN Reason Stop Dose Admin Acetaminophen 650 mg 04/13/21 16:19 Acetaminophen 325 Mg Tab PO Q4H PRN Pain MILD(1-3)/Fever >100.5/SANCHEZ Bupropion HCl 150 mg 04/13/21 22:00 04/13/21 22:45 Bupropion Sr 150 Mg Tab PO 150 mg BID JOHN Administration Cyclobenzaprine HCl 5 mg 04/13/21 22:00 Cyclobenzaprine 10 Mg Tab PO BID PRN Muscle Spasm Famotidine 20 mg 04/13/21 22:00 04/13/21 22:44 Famotidine 20 Mg/2 Ml Inj IV 20 mg BID JOHN Administration Hydromorphone HCl 1 mg 04/13/21 16:19 Hydromorphone 1 Mg/1 Ml Inj IV Q3H PRN Pain , Severe (7-10) Sodium Chloride 1,000 mls @ 100 mls/hr 04/13/21 16:30 04/13/21 16:47 Nacl 0.9% 1000 Ml IV 100 mls/hr DIRECT JOHN Administration Piperacillin Sod/Tazobactam Sod 4.5 gm in 100 mls @ 200 mls/hr 04/13/21 20:00 04/14/21 03:41 Zosyn/Ns 4.5gm/100ml IV 200 mls/hr Q8H JOHN Administration Protocol Losartan Potassium 100 mg 04/13/21 17:00 04/13/21 16:46 Losartan 50 Mg Tab PO 100 mg QDAY JOHN Administration Metoclopramide HCl 10 mg 04/13/21 16:19 Metoclopramide 10 Mg/2 Ml Inj IV Q6H PRN Nausea And Vomiting Morphine Sulfate 2 mg 04/13/21 16:19 04/13/21 22:50 Morphine 2 Mg/1 Ml Inj IV 2 mg Q4H PRN Administration Pain, Moderate (4-6) Nifedipine 60 mg 04/13/21 17:00 04/13/21 16:44 Nifedipine Xl 60 Mg Tab PO 60 mg QDAY JOHN Administration Ondansetron HCl 4 mg 04/13/21 16:19 Ondansetron 4 Mg/2 Ml Inj IV Q8H PRN Nausea And Vomiting Sodium Chloride 10 ml 04/13/21 22:00 04/13/21 22:45 Sodium Chloride 0.9% 10 Ml Flush Syringe IV 10 ml BID JOHN Administration Sodium Chloride 10 ml 04/13/21 16:19 Sodium Chloride 0.9% 10 Ml Flush Syringe IV PRN PRN LINE FLUSH Trazodone HCl 75 mg 04/13/21 22:00 04/13/21 22:44 Trazodone 50 Mg Tab PO 75 mg QHS JOHN Administration
[2021-04-14] MEDS: HYDROmorphone 1 MG/1 ML INJ IV PRN ×4 (09:06→20:12)
[2021-04-14] MEDS: LOSARTAN 50 MG TAB PO SCH (09:07)
[2021-04-14] MEDS: buPROPion SR 150 MG TAB PO SCH ×2 (09:07→21:47)
[2021-04-14] MEDS: FAMOTIDINE 20 MG/2 ML INJ IV SCH ×2 (09:07→21:46)
[2021-04-14] MEDS: NIFEdipine XL 60 MG TAB PO SCH (09:07)
--- NOTE | 2021-04-14 13:15 | Consultation ---
History of Present Illness - Reason for Consult Consult date: 04/14/21 Colitis Requesting physician: SEAMUS CAMPO - History of Present Illness Ms. Burch is a 61-year-old woman who works at [employer], on whom I am consulted for evaluation of colitis. She was in her usual state of good health until approximately 9 PM yesterday when she developed onset of nausea and constant lower abdominal stabbing discomfort. She then had 3 solid stools that she describe as being black or possibly dark green. She had nausea as well. Because of the ongoing nature of the pain, she awoke at 5 AM and came to the emergency room for evaluation. Here, CT was done which showed ascending colon colitis. Rectal exam in the emergency room documents dark brown Hemoccult negative stool. Currently, she is feeling much better and the pain is markedly reduced. She has no more nausea. Patient denies any fevers chills sweats or vomiting. She denies any unusual food exposures. She notes that she used to have bowel movements on a daily basis until approximately 9 months ago when she was started on blood pressure medications. Since then, bowel movements occur twice a week and she usually requires laxatives. She states she has lost 15 pounds since she started the new medications. She denies any GI bleeding. She denies prior similar symptoms. Medications reviewed. Past History Past Medical History: hypertension, hyperlipidemia, other (asthma, Anxiety Disorder) Past Surgical History: hernia repair, Other () Social history: smoking. denies: alcohol abuse Family history: no significant family history Medications and Allergies Allergies Allergy/AdvReac Type Severity Reaction Status Date / Time No Known Allergies Allergy Verified 04/13/21 08:11 Home Medications Medication Instructions Recorded Confirmed Last Taken Type Atorvastatin 40 mg PO DAILY 04/13/21 04/13/21 Unknown History Bupropion HCl 150 mg PO BID 04/13/21 04/13/21 Unknown History Flexeril 5 MG TAB 5 mg PO BID PRN 04/13/21 04/13/21 Unknown History Losartan 100 mg PO DAILY 04/13/21 04/13/21 Unknown History Nifedipine 60 mg PO DAILY 04/13/21 04/13/21 Unknown History Trazodone HCl 75 mg PO HS 04/13/21 04/13/21 Unknown History Active Meds: Active Medications Acetaminophen (Acetaminophen 325 Mg Tab) 650 mg PO Q4H PRN PRN Reason: Pain MILD(1-3)/Fever >100.5/SANCHEZ Bupropion HCl (Bupropion Sr 150 Mg Tab) 150 mg PO BID [facility] Last Admin: 04/14/21 09:07 Dose: 150 mg Documented by: Cyclobenzaprine HCl (Cyclobenzaprine 10 Mg Tab) 5 mg PO BID PRN PRN Reason: Muscle Spasm Famotidine (Famotidine 20 Mg/2 Ml Inj) 20 mg IV BID [facility] Last Admin: 04/14/21 09:07 Dose: 20 mg Documented by: Hydromorphone HCl (Hydromorphone 1 Mg/1 Ml Inj) 1 mg IV Q3H PRN PRN Reason: Pain , Severe (7-10) Last Admin: 04/14/21 09:06 Dose: 1 mg Documented by: Sodium Chloride (Nacl 0.9% 1000 Ml) 1,000 mls @ 100 mls/hr IV DIRECT [facility] Last Admin: 04/13/21 16:47 Dose: 100 mls/hr Documented by: Piperacillin Sod/Tazobactam Sod (Zosyn/Ns 4.5gm/100ml) 4.5 gm in 100 mls @ 200 mls/hr IV Q8H [facility]; Protocol Last Admin: 04/14/21 03:41 Dose: 200 mls/hr Documented by: Losartan Potassium (Losartan 50 Mg Tab) 100 mg PO QDAY [facility] Last Admin: 04/14/21 09:07 Dose: 100 mg Documented by: Metoclopramide HCl (Metoclopramide 10 Mg/2 Ml Inj) 10 mg IV Q6H PRN PRN Reason: Nausea And Vomiting Morphine Sulfate (Morphine 2 Mg/1 Ml Inj) 2 mg IV Q4H PRN PRN Reason: Pain, Moderate (4-6) Last Admin: 04/13/21 22:50 Dose: 2 mg Documented by: Nifedipine (Nifedipine Xl 60 Mg Tab) 60 mg PO QDAY [facility] Last Admin: 04/14/21 09:07 Dose: 60 mg Documented by: Ondansetron HCl (Ondansetron 4 Mg/2 Ml Inj) 4 mg IV Q8H PRN PRN Reason: Nausea And Vomiting Sodium Chloride (Sodium Chloride 0.9% 10 Ml Flush Syringe) 10 ml IV BID [facility] Last Admin: 04/14/21 09:06 Dose: 10 ml Documented by: Sodium Chloride (Sodium Chloride 0.9% 10 Ml Flush Syringe) 10 ml IV PRN PRN PRN Reason: LINE FLUSH Trazodone HCl (Trazodone 50 Mg Tab) 75 mg PO QHS [facility] Last Admin: 04/13/21 22:44 Dose: 75 mg Documented by: Review of Systems All systems: negative (as noted in HPI) Exam - Constitutional Vitals: Temp Pulse Resp BP Pulse Ox 98.5 F 95 H 18 122/70 95 04/14/21 10:54 04/14/21 10:54 04/14/21 10:54 04/14/21 10:54 04/14/21 10:54 General appearance: Present: no acute distress - EENT Eyes: Present: PERRL, EOM intact ENT: hearing intact - Respiratory Respiratory effort: normal Respiratory: bilateral: CTA - Cardiovascular Rhythm: regular Heart Sounds: Present: S1 & S2 - Extremities Extremities: No edema - Abdominal General gastrointestinal: Present: soft, tender (Mild, in LLQ and RLQ) Results - Labs CBC & Chem 7: 04/14/21 04:14 04/14/21 04:14 Labs: Abnormal lab results 04/14/21 04/14/21 Range/Units 04:14 04:14 Lymph % (Auto) 12.3 L (13.4-35.0) % Lymph # (Auto) 1.1 L (1.2-5.4) K/mm3 Seg Neutrophils % 80.7 H (40.0-70.0) % Potassium 3.4 L (3.6-5.0) mmol/L - Imaging and Cardiology CT scan - abdomen: report reviewed (Mild colitis involving ascending colon) Assessment and Plan 1. Ascending colon colitis -acute. No diarrhea. Likely self-limited and toxic or infectious. Patient is already feeling significantly better. -Advance diet as tolerated -If continues to do well, may switch to oral antibiotics and discharge to home tomorrow. -Patient will need outpatient colonoscopy as she has never had one. She should follow-up with GI in 3 to 4 weeks as an outpatient. -Meantime, would have patient take MiraLAX daily on an outpatient basis given the constipation that she has developed, likely due to medications. We will sign off. Please call as needed.
[2021-04-14] MEDS: SODIUM CHLORIDE 0.9% 1000 ML 1,000 ML IV SCH ×2 (13:20→21:45)
[2021-04-14] MEDS: ONDANSETRON 4 MG/2 ML INJ IV PRN (20:13)
[2021-04-14] MEDS: traZODone 50 MG TAB PO SCH (21:46)
[2021-04-15] MEDS: HYDROmorphone 1 MG/1 ML INJ IV PRN ×2 (03:36→07:17)
[2021-04-15] MEDS: ONDANSETRON 4 MG/2 ML INJ IV PRN (03:36)
[2021-04-15] MEDS: PIPERACIL/TAZOBACTA 4.5/NS 100 4.5 GM/100 ML VIAL IV SCH (04:03)
[2021-04-15 08:38] LABS: Blood Urea Nitrogen 3 mg/dL (7-17); Calcium 9.2 mg/dL (8.4-10.2); Hemolysis Index 2
[2021-04-15 08:56] LABS: BUN/Creatinine Ratio 5
--- NOTE | 2021-04-15 09:24 | Discharge Summary ---
Providers - Providers Date of Admission: 04/13/21 15:16 Date of discharge: 04/15/21 Attending physician: WARREN RIBERA 04/13/21 16:26 Consult to Physician [CONS] Routine Comment: Consulting Provider: LEX JONES Physician Instructions: Reason For Exam: Colitis,melena Hospitalization Reason for admission: Abdominal pain of 1 day duration with nausea , Condition: Fair Pertinent studies: CT abdomen and pelvis; Suspect localized colitis at the ascending colon. Follow- up is recommended to ensure clearing and exclude an underlying lesion. 2. Calcified gallstones. Hospital course: 61-year-old female patient with significant past medical history of hypertension, dyslipidemia, anxiety disorder was admitted through emergency room with abdominal pain of 1 day duration Patient had diffuse abdominal pain with nausea no vomiting also had, diarrhea and black stool. Initial work-up with CT scan findings consistent with localized colitis of the ascending colon. Patient was admitted to the hospital managed appropriately with IV fluids n.p.o. status empiric antibiotics and pain medications, subsequently evaluated by GI who agreed with the initial management, and advised to start clear liquids and advance as tolerated. Patient symptoms slowly but gradually improved patient advance her diet today regular diet today No new episodes nausea or black tarry stool Today she is comfortable no new complaints vital signs stable ambulating tolerating patient cleared by GI for discharge on oral antibiotics Follow-up in his clinic in 2 to 3 weeks,, to discuss about interval colonoscopy, patient never had colonoscopy before Patient is hemodynamically and clinically stable at discharge Extensively counseled the patient smoking cessation, advised nicotine patch if needed Patient verbalized understanding, stable at discharge Discharge diagnosis --Hypokalemia; resolved Replenished with KCl --Localized colitis ascending colon Received IV Zosyn and IV Flagyl during hospital stay DC home on oral Levaquin and Flagyl for 10 more days Advance diet as tolerated --Hypertension/well controlled Continue home antihypertensives --Hyperlipidemia Continue statins. Low-cholesterol diet. --Cholelithiasis on CT; Evaluated by GI, further work-up as outpatient --Ongoing tobacco use; Patient advised smoking cessation, Nicotine patch as needed, spent 17 minutes counseling. --Depression Continue Wellbutrin, advised to see psych as OP Stable at discharge Disposition: DC-01 TO HOME OR SELFCARE Final Discharge Diagnosis (Prints w/discharge instructions): Localized colitis ascending colon. Hypokalemia. Hypertension. Hyperlipidemia. Cholelithiasis. Depression. Ongoing tobacco use Time spent for discharge: 35 min Core Measure Documentation - Palliative Care Palliative Care/ Comfort Measures: Not Applicable - Core Measures Any of the following diagnoses?: none Exam - Constitutional Vitals: Temp Pulse Resp BP Pulse Ox 97.9 F 88 18 134/79 97 04/15/21 07:39 04/15/21 07:39 04/15/21 07:39 04/15/21 07:39 04/15/21 07:39 General appearance: Present: no acute distress, well-nourished - EENT Eyes: Present: PERRL, EOM intact - Neck Neck: Present: supple, normal ROM - Respiratory Respiratory effort: normal Respiratory: bilateral: diminished, negative: rales, rhonchi, wheezing - Cardiovascular Rhythm: regular Heart Sounds: Present: S1 & S2 - Extremities Extremities: no ischemia, No edema - Abdominal General gastrointestinal: Present: soft, non-tender, non-distended, normal bowel sounds - Integumentary Integumentary: Present: clear, warm - Musculoskeletal Musculoskeletal: strength equal bilaterally - Psychiatric Psychiatric: appropriate mood/affect, cooperative - Neurologic Neurologic: moves all extremities Plan Activity: no restrictions Diet: advance as tolerated Additional Instructions: Advance her diet as tolerated. If you have worsening symptoms contact MD or go to emergency room as needed. Need to follow-up with GI[gastrointestinal] Specialist for further evaluation management per schedule Follow up with: MADELINE DAI [Other] - 7 Days AJAY LOPEZ MD [Staff Physician] - 14 Days Prescriptions: metroNIDAZOLE [Flagyl] 500 mg PO Q8HR #30 tablet levoFLOXacin [Levaquin] 750 mg PO QDAY #10 tablet oxyCODONE /ACETAMINOPHEN [Percocet 5/325] 1 tab PO Q8H PRN #15 tablet PRN Reason: Pain Pantoprazole [Protonix] 40 mg PO QDAY #14 tablet
[2021-04-15 11:41] VITALS: BP 144/77
== END 2021-04-15 14:10 | disposition home or self-care (01) ==
LOC: ED 06:02 → INTOOBSV 15:16 → 3B-SURG 15:16 → 2B-ACE 18:03 → 3B-SURG 18:08
PROVIDERS: ADMIT Internal Medicine; ATTEND Internal Medicine
DX: K52.9 Noninfective gastroenteritis and colitis, unspecified (principal); I10 Essential (primary) hypertension; E78.5 Hyperlipidemia, unspecified; F32.9 Major depressive disorder, single episode, unspecified; E78.00 Pure hypercholesterolemia, unspecified; K92.1 Melena; E87.6 Hypokalemia; F17.200 Nicotine dependence, unspecified, uncomplicated; Z98.891 History of uterine scar from previous surgery
CPT/HCPCS: 36415; 74022; 74177; 80048; 80053; 81001; 83036; 83690; 83735; 84100; 85025; 85610; 85730; 96361; 96365; 96366; 96375; 96376; 99285; C9113; G0378; J1170; J2270; J2405; J2543; J7030; Q9967; 96374

== ENCOUNTER 2021-09-06 07:16 | Emergency (ER) | payer BC ==
--- NOTE | 2021-09-06 07:41 | Event Note ---
ED Screening Note Date of service: 09/06/21 Time: 07:39 ED Screening Note: 61-year-old -[place] female with a past medical history of asthma high blood pressure hypercholesterolemia presents to the emergency room for abdominal pain and blood in stool for 3 days. She admits to nausea no vomiting. She states that she has an appointment soon with a GI specialist. This initial assessment/diagnostic orders/clinical plan/treatment(s) is/are subject to change based on patients health status, clinical progression and re- assessment by fellow clinical providers in the ED. Further treatment and workup at subsequent clinical providers discretion. Patient/guardian urged not to elope from the ED as their condition may be serious if not clinically assessed and managed. Initial orders include: CBC CMP urinalysis type and screen Patient will be evaluated in the main ER
[2021-09-06 08:06] LABS: Basophils % (Auto) 0.5 % (0.0-1.8); Eosinophils % (Auto) 0.3 % (0.0-4.3); Hemoglobin 13.2 gm/dl (10.1-14.3); Lymphocytes # (Auto) 0.9 K/mm3 (1.2-5.4); Lymphocytes % (Auto) 11.3 % (13.4-35.0); Mean Corpuscular HGB Conc 33 % (30-34); Mean Corpuscular Volume 88 fl (79-97); Monocytes # (Auto) 0.4 K/mm3 (0.0-0.8); Monocytes % (Auto) 5.2 % (0.0-7.3); Platelet Count 346 K/mm3 (140-440); Red Blood Count 4.53 M/mm3 (3.65-5.03); Red Cell Distribution Width 14.3 % (13.2-15.2)
[2021-09-06 08:30] LABS: Alanine Aminotransferase 16 units/L (7-56); Albumin 4.8 g/dL (3.9-5); Blood Urea Nitrogen 6 mg/dL (7-17); Calcium 9.6 mg/dL (8.4-10.2); Hemolysis Index 163
[2021-09-06 08:33] LABS: BUN/Creatinine Ratio 9
--- NOTE | 2021-09-06 09:33 | Emergency Department Report ---
HPI - General Chief Complaint: GI Bleed Time Seen by Provider: 09/06/21 07:39 - HPI HPI: Room 6 The patient is a 61-year-old female presenting with a chief complaint of abdominal pain. Patient states her symptoms began 2 days ago with diarrhea. Patient states she had approximately 6-7 episodes first day. Yesterday the patient developed lower abdominal pain states she had approximately 3 episodes of diarrhea and nausea without vomiting. The patient states she did not look in the bowl but she did notice blood on the tissue after wiping yesterday and again this morning prompted her to come to the emergency department. Patient denies rectal pain. Patient denies sick contacts ED Past Medical Hx - Past Medical History Previous Medical History?: Yes Hx Hypertension: Yes Hx Asthma: Yes Additional medical history: high cholesterol, GI BLEED - Surgical History Past Surgical History?: Yes Additional Surgical History: - Family History Family history: no significant - Social History Smoking Status: Current Every Day Smoker (3 cigarettes daily) Substance Use Type: None (Denies illicit drug use) - Medications Home Medications: Home Medications Medication Instructions Recorded Confirmed Last Taken Type Atorvastatin 40 mg PO DAILY 04/13/21 04/13/21 Unknown History Bupropion HCl 150 mg PO BID 04/13/21 04/13/21 Unknown History Flexeril 5 MG TAB 5 mg PO BID PRN 04/13/21 04/13/21 Unknown History Losartan 100 mg PO DAILY 04/13/21 04/13/21 Unknown History Nifedipine 60 mg PO DAILY 04/13/21 04/13/21 Unknown History Trazodone HCl 75 mg PO HS 04/13/21 04/13/21 Unknown History Nicotine [Habitrol] 14 mg TD DAILY #30 patch 04/15/21 Unknown Rx Pantoprazole [Protonix] 40 mg PO QDAY #14 tablet 04/15/21 Unknown Rx levoFLOXacin [Levaquin] 750 mg PO QDAY #10 tablet 04/15/21 Unknown Rx metroNIDAZOLE [Flagyl] 500 mg PO Q8HR #30 tablet 04/15/21 Unknown Rx oxyCODONE /ACETAMINOPHEN [Percocet 1 tab PO Q8H PRN #15 tablet 04/15/21 Unknown Rx 5/325] Ciprofloxacin HCl 500 mg PO BID #14 tablet 09/06/21 Unknown Rx HYDROcodone/APAP 5-325 [[place] 1 - 2 each PO Q6HR PRN #14 tablet 09/06/21 Unknown Rx 5/325] Promethazine [Phenergan] 25 mg PO Q6HR PRN #20 tab 09/06/21 Unknown Rx Promethazine [Phenergan] 25 mg [place] Q6HR PRN #5 supp.rect 09/06/21 Unknown Rx metroNIDAZOLE [Flagyl] 500 mg PO Q8HR #21 tablet 09/06/21 Unknown Rx ED Review of Systems ROS: Stated complaint: GI BLEED WITH ABD PAIN Other details as noted in HPI Constitutional: no symptoms reported Eyes: denies: eye pain ENT: denies: throat pain Respiratory: no symptoms reported Cardiovascular: denies: chest pain Endocrine: no symptoms reported Gastrointestinal: abdominal pain, nausea, diarrhea, hematochezia. denies: vomiting Genitourinary: denies: dysuria Musculoskeletal: denies: back pain Neurological: denies: headache Physical Exam - Physical Exam Vital Signs: Vital Signs 09/06/21 09/06/21 09/06/21 07:28 08:09 08:13 Temperature 98.6 F Pulse Rate 115 H 94 H 97 H Respiratory 20 12 15 Rate Blood Pressure 148/108 Blood Pressure 182/105 [Left] O2 Sat by Pulse 100 Oximetry 09/06/21 08:15 Temperature Pulse Rate Respiratory Rate Blood Pressure Blood Pressure [Left] O2 Sat by Pulse 99 Oximetry Physical Exam: GENERAL: The patient is well-developed well-nourished female lying on stretcher not appearing to be in acute distress. [] HEENT: Normocephalic. Atraumatic. Extraocular motions are intact. Patient has moist mucous membranes. NECK: Supple. Trachea midline CHEST/LUNGS: Clear to auscultation. There is no respiratory distress noted. HEART/CARDIOVASCULAR: Regular. There is no tachycardia. There is no gallop rub or murmur. ABDOMEN: Abdomen is soft, with diffuse discomfort to palpation. No rebound or guarding. Patient has normal bowel sounds. There is no abdominal distention. SKIN: There is no rash. There is no edema. There is no diaphoresis. NEURO: The patient is awake, alert, and oriented. The patient is cooperative. The patient has no focal neurologic deficits. The patient has normal speech. GCS 15 MUSCULOSKELETAL: There is no evidence of acute injury. ED Course Vital Signs 09/06/21 09/06/21 09/06/21 07:28 08:09 08:13 Temperature 98.6 F Pulse Rate 115 H 94 H 97 H Respiratory 20 12 15 Rate Blood Pressure 148/108 Blood Pressure 182/105 [Left] O2 Sat by Pulse 100 Oximetry 09/06/21 08:15 Temperature Pulse Rate Respiratory Rate Blood Pressure Blood Pressure [Left] O2 Sat by Pulse 99 Oximetry - Consultations Consultation #1: 09/06/21 12:31 GI paged 09/06/21 13:40 Case discussed with manager restaurant Dr. Stoddard-recommends initiating 7-day course of ciprofloxacin and Flagyl have patient keep her appointment September 10, 2020 ED Medical Decision Making - Lab Data Result diagrams: 09/06/21 07:51 09/06/21 07:51 - Radiology Data Radiology results: report reviewed (CT abdomen pelvis), image reviewed (CT ab domen pelvis) [place] [id number] Cat Scan Report Signed Patient: RUBENS RICHARD MR#: [id number] 09 : 1960 Acct:[id number] Age/Sex: 61 / F ADM Date: 09/06/21 Loc: ED Attending Dr: Ordering Physician: MARICEL LEACH MD Date of Service: 09/06/21 Procedure(s): CT abdomen pelvis w con Accession Number(s): [id number] cc: MARICEL LEACH MD CT ABDOMEN AND PELVIS WITH CONTRAST INDICATION / CLINICAL INFORMATION: Diffuse abdominal pain, hematochezia OMNI 300 100ML . TECHNIQUE: Axial CT images were obtained through the abdomen and pelvis after IV contrast. All CT scans at this location are performed using CT dose reduction for ALARA by means of automated exposure control. COMPARISON: CT abdomen and pelvis 04/13/2021 FINDINGS: LOWER CHEST: No significant abnormality. LIVER: No significant abnormality. GALLBLADDER: Gallstones PANCREAS: No significant abnormality. SPLEEN: No significant abnormality. ADRENALS: No significant abnormality. RIGHT KIDNEY / URETER: No significant abnormality. LEFT KIDNEY / URETER: No significant abnormality. STOMACH / SMALL BOWEL: No significant abnormality. COLON: Wall thickening and submucosal edema the descending colon and proximal sigmoid colon. No significant pericolonic inflammation. APPENDIX: No significant abnormality. PERITONEUM: No free fluid, free air or organized collection. LYMPH NODES: No significant adenopathy. AORTA / ARTERIES/ VEINS: Mild atherosclerotic calcification without acute abnormality. URINARY BLADDER: No significant abnormality. REPRODUCTIVE ORGANS: No significant abnormality. ADDITIONAL FINDINGS: None. SKELETAL SYSTEM: No significant abnormality. IMPRESSION: 1. Colitis of the descending and sigmoid colon. 2. Cholelithiasis. Signer Name: Shiraz Maguire MD Signed: 09/06/2021 10:09 AM Workstation Name: [id number] Transcribed By: SB Dictated By: SHIRAZ MAGUIRE MD Electronically Authenticated By: SHIRAZ MAGUIRE MD Signed Date/Time: 09/06/21 1009 DD/ 1003 TD/TT: Print Cancel - Differential Diagnosis Colitis, gastroenteritis, pancreatitis Critical care attestation.: If time is entered above; I have spent that time in minutes in the direct care of this critically ill patient, excluding procedure time. ED Disposition Clinical Impression: Acute colitis, Acute abdominal pain Disposition: 01 HOME / SELF CARE / HOMELESS Is pt being admited?: No Does the pt Need Aspirin: No Condition: Stable Instructions: Colitis Additional Instructions: Return to the emergency department should you develop worsening symptoms, inability to tolerate food or liquids, high fever or any other concerns Prescriptions: Ciprofloxacin HCl 500 mg PO BID #14 tablet metroNIDAZOLE [Flagyl] 500 mg PO Q8HR #21 tablet HYDROcodone/APAP 5-325 [[place] 5/325] 1 - 2 each PO Q6HR PRN #14 tablet PRN Reason: Pain Promethazine [Phenergan] 25 mg PO Q6HR PRN #20 tab PRN Reason: Nausea Promethazine [Phenergan] 25 mg [place] Q6HR PRN #5 supp.rect PRN Reason: Vomiting Referrals: PRIMARY CARE, [Primary Care Provider] - 3-5 Days AJAY ZAMORA MD [Staff Physician] - 09/10/21 (Dr. Zamora is a manager restaurant. Please keep your appointment with him for further evaluation) Forms: Accompanied Note Time of Disposition: 13:44
--- NOTE | 2021-09-06 10:13 | Cat Scan Report ---
CT ABDOMEN AND PELVIS WITH CONTRAST INDICATION / CLINICAL INFORMATION: Diffuse abdominal pain, hematochezia OMNI 300 100ML . TECHNIQUE: Axial CT images were obtained through the abdomen and pelvis after IV contrast. All CT sc ans at this location are performed using CT dose reduction for ALARA by means of automated exposure c ontrol. COMPARISON: CT abdomen and pelvis 04/13/2021 FINDINGS: LOWER CHEST: No significant abnormality. LIVER: No significant abnormality. GALLBLADDER: Gallstones PANCREAS: No significant abnormality. SPLEEN: No significant abnormality. ADRENALS: No significant abnormality. RIGHT KIDNEY / URETER: No significant abnormality. LEFT KIDNEY / URETER: No significant abnormality. STOMACH / SMALL BOWEL: No significant abnormality. COLON: Wall thickening and submucosal edema the descending colon and proximal sigmoid colon. No signi ficant pericolonic inflammation. APPENDIX: No significant abnormality. PERITONEUM: No free fluid, free air or organized collection. LYMPH NODES: No significant adenopathy. AORTA / ARTERIES/ VEINS: Mild atherosclerotic calcification without acute abnormality. URINARY BLADDER: No significant abnormality. REPRODUCTIVE ORGANS: No significant abnormality. ADDITIONAL FINDINGS: None. SKELETAL SYSTEM: No significant abnormality. IMPRESSION: 1. Colitis of the descending and sigmoid colon. 2. Cholelithiasis. Signer Name: Shiraz Maguire MD Signed: 09/06/2021 10:09 AM Workstation Name: [id number]
[2021-09-06] MEDS ORDERED: SODIUM CHLORIDE 0.9% 1000 ML 1,000 ML IV ONE (10:29)
[2021-09-06 10:30] LABS: Bacteria,Urine 1+ /HPF (Negative); Bilirubin,Urine NEG (Negative); Blood,Urine NEG (Negative); Color,Urine Yellow (Yellow); Hyaline Casts,Urine 3 /LPF; Mucus,Urine FEW /HPF; Urobilinogen,Urine < 2.0 mg/dL (<2.0)
[2021-09-06 10:39] LABS: Protein,Urine >500 mg/dL (Negative)
[2021-09-06] MEDS ORDERED: ACETAMINOPHEN 500 MG TAB PO ONE (10:50)
[2021-09-06 13:51] VITALS: BP 197/95
== END 2021-09-06 14:00 | disposition home or self-care (01) ==
LOC: ED 07:16
DX: K52.9 Noninfective gastroenteritis and colitis, unspecified (principal); R10.9 Unspecified abdominal pain; F17.200 Nicotine dependence, unspecified, uncomplicated; I10 Essential (primary) hypertension; J45.909 Unspecified asthma, uncomplicated
CPT/HCPCS: 36415; 74177; 80053; 81001; 82270; 85025; 86850; 86900; 86901; 96360; 99284; J7030; Q9967; Q0162